=== PATIENT | female | born 1980 | race African-American/Black ===

== ENCOUNTER 2019-01-18 08:07 | Emergency (ER) | payer OTHER ==
[~2019-01-18] VITALS: Ht 167.6 cm; Wt 82.6 kg
[~2019-01-18 08:07] MED LIST: COMPOUND W; IBUPROFEN 800800 MG PO; NORCO 5-325 TA1 EACH PO; PENICILLIN V P500 MG PO; PENICILLIN VK500 MG PO; PERCOCET 5-3251 EACH PO
[2019-01-18 08:13] VITALS: BP 134/57
[2019-01-18] MEDS ORDERED: METFORMIN HCL500 MG PO (08:19)
== END 2019-01-18 09:03 | disposition home or self-care (01) ==
LOC: ER 08:07
DX: R07.89 Other chest pain (principal); F17.210 Nicotine dependence, cigarettes, uncomplicated; E11.9 Type 2 diabetes mellitus without complications